=== PATIENT | female | born 1970 | race Caucasian/White ===

== ENCOUNTER 2016-11-28 06:12 | Day surgery (SDC) | payer BC ==
[2016-11-27 10:40] LABS: HEMATOCRIT 40.6 % (36.0-48.0); HEMOGLOBIN 14.3 g/dL (12.0-16.0)
--- NOTE | ~2016-11-28 | OP ---
Record Of Operation [facility] [address] [place]. [address] NAME: KARTIK GARDNER : 70 STATUS : [facility]#: [id number] AGE: 46 ADM/REG DATE : 11/28/16 MR#: [id number] REPORT SERV DATE: 11/28/16 DICTATED BY: DIVINA NIXON JR. 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 The patient is quite anxious and while this has overall benign features on core biopsy, there is minimal atypia and the risk of intermediate phyllodes tumor or even malignant phyllodes tumor remains of some concern. The patient has decided on excision as opposed to a followup. This itself is not a risk factor for breast cancer as it is a stromal tumor. PREOPERATIVE DIAGNOSIS: Phyllodes tumor, central left breast. POSTOPERATIVE DIAGNOSIS: Phyllodes tumor, central left breast. SURGERY PERFORMED: Left breast segmentectomy procedure under general anesthesia. DESCRIPTION OF PROCEDURE: The patient was prepped and draped in supine position in usual sterile fashion. A curvilinear incision was made at the inferior edge of the left areola. Vertical dissection was carried into the fatty tissue and then tunneling under the nipple areolar process was performed elevating the nipple and areola process about 1 cm deep. A three- dimensional excision of this mass was then performed. The only exposed surface was at the mid 12 o'clock, and therefore, an additional disk of tissue was taken at the superior border measuring 1 x 1 x 1.5 cm. The tumor mass itself is estimated at several centimeters, but does indeed have a clinical border of normal breast tissue. It was excised and oriented for pathology. The wound was irrigated. Hemostasis obtained. The deep central portion of the breast was reconstructed with Monocryl in order to allow a normal projection of the nipple and areolar process and to attempt to prevent retraction on a chronic basis. This was seen to be well accomplished. The wound itself was closed with two layers of Monocryl. The patient tolerated the procedure well without complications. ESTIMATED BLOOD LOSS: 5 mL. SPONGE COUNT: Correct. MR/MODL Divina Nixon Jr., M.D. Record Of Operation [facility] [address] [place] [address] NAME: KARTIK GARDNER : 70 STATUS : [facility] PAT#: [id number] AGE: 46 ADM/REG DATE : 11/28/16 MR#: [id number] REPORT SERV DATE: 11/28/16 DICTATED BY: DIVINA NIXON JR. DATE: 11/28/16 REPORT STATUS : Draft TRANSCRIBED BY: VAN DATE: 11/28/16 / [id number] CC: Serafin Du Jr., M.D. [facility] Nayla Lawson M.D.
[~2016-11-28 06:12] MED LIST: *DENIES; ANADS PO; AVAP150 PO; PCET PO; ZOFRAN8 PO
== END 2016-11-28 10:54 | disposition home or self-care (01) ==
LOC: SDC 06:12
PROVIDERS: Surgery Surgical Oncology
PROC: 0HBU0ZZ Excision of Left Breast, Open Approach (ICD-10-PCS; principal; 2016-11-28 07:45)
DX: D24.2 Benign neoplasm of left breast (principal); Z88.5 Allergy status to narcotic agent; Z90.710 Acquired absence of both cervix and uterus; Z98.890 Other specified postprocedural states
CPT/HCPCS: 85014; 85018; 88305; 88307; A9270-GY; J0690; J2250; J2270; J2405; J3010